=== PATIENT | male | born 1960 | race Caucasian/White ===

== ENCOUNTER 2017-10-23 16:59 | Outpatient (CLI) | payer BC | END 2017-10-23 17:00 | disposition critical access hospital (66) | LOC: EMS 16:59 | PROVIDERS: ATTEND Surgery | DX: S09.90XA Unspecified injury of head, initial encounter (principal); R07.81 Pleurodynia; R68.84 Jaw pain; R41.0 Disorientation, unspecified; V18.4XXA Pedal cycle driver injured in noncollision transport accident in traffic accident, initial encounter; Y93.55 Activity, bike riding; Y92.410 Unspecified street and highway as the place of occurrence of the external cause | CPT/HCPCS: A0425; A0427 ==

== ENCOUNTER 2017-10-23 17:38 | Emergency (ER) | payer BC ==
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
[2017-10-23] MEDS ORDERED: KETOROLAC 60 MG/2 ML VIAL IVP STA (18:18)
[2017-10-23] MEDS ORDERED: ACETAMINOPHEN 325 MG TABLET PO STA (18:19)
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
--- NOTE | 2017-10-23 19:06 | XRAY Preliminary Report ---
Exam: XR CHEST 2 VIEW X-RAY IMPRESSION: Negative. [facility] SITE ID: [id number]
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
--- NOTE | 2017-10-23 19:18 | XRAY Preliminary Report ---
Exam: XR HAND 3 VIEW RT IMPRESSION: No acute fracture. [facility] SITE ID: [id number]
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
[2017-10-23 20:41] VITALS: BP 140/62
== END 2017-10-23 20:05 | disposition home or self-care (01) ==
LOC: EDUNIT# → SUPCPDRO 17:38 → ED 17:38
DX: S02.69XA Fracture of mandible of other specified site, initial encounter for closed fracture (principal); S06.0X1A Concussion with loss of consciousness of 30 minutes or less, initial encounter; S20.211A Contusion of right front wall of thorax, initial encounter; S60.221A Contusion of right hand, initial encounter; V18.4XXA Pedal cycle driver injured in noncollision transport accident in traffic accident, initial encounter; Y93.55 Activity, bike riding; I10 Essential (primary) hypertension
CPT/HCPCS: 70450; 71046; 73130; 96374; 99283; 99284; A9270